=== PATIENT | male | born 1945 | race Caucasian/White ===

== ENCOUNTER → 2018-04-03 | Outpatient (CLI) | payer OTHER ==
[~2018-04-03] MED LIST: AMBI10TA PO; ASPI81TA23 PO; HYDR-3516 PO; LAMO300T PO; LATA0.002 RIGHT EYE; PRAM0.25 PO; QUET-73 PO; SERT-129 PO; TRAZ1TAB14 PO
--- NOTE | 2018-04-03 11:48 | RADRPT ---
EXAM DATE: 04/03/2018 11:45 AM EDT AGE/SEX: 72 years / Male INDICATIONS: Evaluate for pneumonia, pneumothorax and communicable diseases. Pre-op colon surgery CLINICAL DATA: This is the patient's initial encounter. Patient reports that signs and symptoms have been present for 1 day and indicates a pain score of 0/10. MEDICAL/SURGICAL HISTORY: None. None. COMPARISON: No prior [facility] exams available for comparison. FINDINGS: PA and lateral views of the chest demonstrate the lungs to be symmetrically aerated withou t evidence of mass, infiltrate or effusion. The cardiomediastinal contours are unremarkable. Osseous structures are intact. CONCLUSION: No evidence of acute cardiopulmonary process. Electronically signed by: Jose Spear MD 04/03/2018 11:47 AM EDT
[2018-04-03 11:54] LABS: AUTOMATED NEUTROPHIL # 3.4 TH/MM3 (1.8-7.7); BASOPHIL % 0.5 % (0.0-2.0); EOSINOPHIL # 0.2 TH/MM3 (0-0.4); EOSINOPHIL % 2.9 % (0.0-4.0); HEMATOCRIT 45.6 % (39.0-51.0); HEMOGLOBIN 15.7 GM/DL (13.0-17.0); LYMPH % 22.4 % (9.0-44.0); LYMPHOCYTE # 1.2 TH/MM3 (1.0-4.8); MEAN CELL VOLUME 91.7 FL (80.0-100.0); MEAN CORPUSCULAR HEMOGLOBIN 31.5 PG (27.0-34.0); MEAN CORPUSCULAR HGB CONC 34.3 % (32.0-36.0); MEAN PLATELET VOLUME 9.2 FL (7.0-11.0); MONO % 8.5 % (0.0-8.0); MONOCYTE # 0.4 TH/MM3 (0-0.9); NEUT % 65.7 % (16.0-70.0); PLATELET COUNT 171 TH/MM3 (150-450); RED BLOOD COUNT 4.97 MIL/MM3 (4.50-5.90); RED CELL DISTRIBUTION WIDTH 13.6 % (11.6-17.2); WHITE BLOOD COUNT 5.2 TH/MM3 (4.0-11.0)
[2018-04-03 12:01] LABS: PROTHROMBIN TIME - PATIENT 9.7 SEC (9.8-11.6)
[2018-04-03 12:22] LABS: ALBUMIN 3.8 GM/DL (3.4-5.0); AST (GOT) 17 U/L (15-37); BICARBONATE 30.5 MEQ/L (21.0-32.0); BLOOD UREA NITROGEN 20 MG/DL (7-18); CALCIUM 9.1 MG/DL (8.5-10.1); CHLORIDE 105 MEQ/L (98-107); CREATININE 1.34 MG/DL (0.60-1.30); GLOMERULAR FILTRATION RATE 53 ML/MIN (>89); GLUCOSE,FASTING 90 MG/DL (74-99); SODIUM (NA) 142 MEQ/L (136-145)
[2018-04-03 12:30] LABS: ALKALINE PHOSPHATASE 124 U/L (45-117); ALT (GPT) 26 U/L (12-78); TOTAL BILIRUBIN ADULT 0.4 MG/DL (0.2-1.0); TOTAL PROTEIN 6.9 GM/DL (6.4-8.2)
[2018-04-03 15:07] LABS: BILIRUBIN, URINE NEG (NEG); BLOOD, URINE NEG (NEG); GLUCOSE,URINE NEG (NEG); KETONE, URINE NEG (NEG); MUCUS URINE FEW /lpf (OCC); NITRITE,URINE NEG (NEG); SQUAMOUS EPITHELIAL CELL URINE <1 /hpf (0-5); URINE COLOR YELLOW (YELLW/STRAW); URINE LEUKOCYTE ESTERASE NEG (NEG)
--- NOTE | 2018-04-03 16:04 | EKG ---
Date Performed: 04/03/2018 Time Performed: 10:36:57 PTAGE: 72 years EKG: Sinus rhythm MODERATE INTRAVENTRICULAR CONDUCTION DELAY BORDERLINE ECG NO PREVIOUS TRACING DOCTOR: Telma Villavicencio Interpretating Date/Time 04/03/2018 16:02:08
== END ==
LOC: CPRE 10:16
PROVIDERS: ATTEND Colon & Rectal Surgery
DX: Z01.812 Encounter for preprocedural laboratory examination (principal); Z01.810 Encounter for preprocedural cardiovascular examination; Z01.811 Encounter for preprocedural respiratory examination; D12.2 Benign neoplasm of ascending colon; R94.31 Abnormal electrocardiogram [ECG] [EKG]; Z79.01 Long term (current) use of anticoagulants
CPT/HCPCS: 36415; 71046; 80053; 81001; 82378; 85025; 85610; 85730; 86850; 86900; 86901; 93005

== ENCOUNTER 2018-04-05 12:29 | Inpatient (IN) | payer OTHER, MEDICARE ==
[~2018-04-05] VITALS: Ht 182.9 cm; Wt 100.0 kg
[~2018-04-05 12:29] MED LIST changes: -AMBI10TA PO; +DEXAMETHASONE SOD PHOS 4 MG/ML VIAL IV ONE; -HYDR-3516 PO; +LIDOCAINE HCL 1% PF 5 ML SYRINGE OTHER ONE; +NORMOSOL R INJ 1,000 ML IV ONE; +ONDANSETRON HCL 4 MG/2 ML VIAL IV PUSH ONE; +PHENYLEPH/NS 1000 MCG/10 ML SYR IV ONE; +PROPOFOL 200 MG/20 ML AMP IV ONE; +ROCURONIUM INJ 50 MG/5 ML SYRINGE IV PUSH ONE
[2018-04-05] MEDS ORDERED: AMBI10TA PO (14:09)
[2018-04-05] MEDS ORDERED: CHLORHEXIDINE GLUCONATE 2 % 1 PACK (2 CLOTHS) TOPICAL PRN (14:15)
[2018-04-05] MEDS ORDERED: ALVIMOPAN 12 MG CAPSULE - On Call PO SCH (14:15)
[2018-04-05] MEDS ORDERED: SODIUM CHLORID 0.9% 500 ML IV PRN (14:15)
[2018-04-05] MEDS ORDERED: ceFAZolin 1,000 MG/NS 100 ML IV SCH ×2 (14:15)
[2018-04-05] MEDS ORDERED: POVIDONE IODINE 5% (ANTISEPSIS KIT) 4 APPLICATIONS EACH NARE PRN (14:15)
[2018-04-05] MEDS ORDERED: LACTATED RINGER'S 1000 ML IV PRN (14:15)
[2018-04-05] MEDS ORDERED: METOPROLOL TARTRATE 25 MG TAB PO PRN (14:15)
[2018-04-05] MEDS ORDERED: DEXT 5%-NACL 0.9% 1000 ML INJ 1,000 ML IV SCH (14:30)
[2018-04-05] MEDS ORDERED: METRONIDAZOLE 500 MG/100 ML ISONTONIC SOLN IV SCH (14:30)
[2018-04-05] MEDS ORDERED: SUGAMMADEX SODIUM 200 MG/2 ML VIAL IV PUSH ONE ×2 (15:54→17:08)
[2018-04-05] MEDS ORDERED: ACETAMINOPHEN 1000 MG/100 ML 100 ML IV ONE (15:54)
[2018-04-05] MEDS ORDERED: ENALAPRILAT 1.25 MG/ML VIAL IV PUSH PRN (17:15)
[2018-04-05] MEDS ORDERED: BENZOCAINE 6 MG/MENTHOL 10 MG LOZENGE BUCCAL PRN (17:15)
[2018-04-05] MEDS ORDERED: POTASSIUM CHLOR 40 MEQ PREMIX 100 ML IV PRN (17:15)
[2018-04-05] MEDS ORDERED: SODIUM CHLORIDE 0.9% FLUSH 10 ML FLUSH IV FLUSH PRN (17:15)
[2018-04-05] MEDS ORDERED: ZOLPIDEM TARTRATE 5 MG TAB PO PRN (17:15)
[2018-04-05] MEDS ORDERED: NALOXONE HCL 0.4 MG/ML AMP IV PUSH PRN (17:15)
[2018-04-05] MEDS ORDERED: KETOROLAC TROMETHAMINE 30 MG/ML (IVP) VIAL IVP PRN (17:15)
[2018-04-05] MEDS ORDERED: ONDANSETRON ODT 4 MG TAB PO PRN (17:15)
[2018-04-05] MEDS ORDERED: Post-op Orders (for Pharmacy) XX ONE (17:15)
[2018-04-05] MEDS ORDERED: ACETAMINOPHEN/HYDROcodone 325 MG/5 MG TAB PO PRN (17:15)
[2018-04-05] MEDS ORDERED: POTASSIUM CHLOR 20 MEQ PREMIX 100 ML IV PRN (17:15)
[2018-04-05] MEDS ORDERED: MEPERIDINE HCL 50 MG/ML VIAL ONE (17:19)
[2018-04-05] MEDS ORDERED: ONDANSETRON HCL 4 MG/2 ML VIAL ONE (17:21)
[2018-04-05] MEDS ORDERED: *PROMETHAZINE 25 MG/ML VIAL PERIprocedural use ONLY ONE (17:21)
[2018-04-05] MEDS ORDERED: *morphine SULFATE 10 MG/ML PERIprocedure ONLY ONE ×2 (17:23→19:25)
[2018-04-05] MEDS ORDERED: HYDROmorphone HCL PF 2 MG/ML VIAL ONE (17:27)
[2018-04-05] MEDS ORDERED: MORPHINE SULFATE 4 MG/ML INJ ONE (17:28)
[2018-04-05] MEDS ORDERED: MIDAZOLAM HCL 2 MG/2 ML VIAL ONE (17:28)
[2018-04-05] MEDS ORDERED: *diphenhydrAMINE HCL 50 MG/ML VIAL PERIprocedural Use ONLY ONE (17:51)
[2018-04-05 17:58] LABS: AUTOMATED NEUTROPHIL # 10.6 TH/MM3 (1.8-7.7); BASOPHIL % 0.2 % (0.0-2.0); EOSINOPHIL # 0.1 TH/MM3 (0-0.4); EOSINOPHIL % 0.6 % (0.0-4.0); HEMATOCRIT 43.5 % (39.0-51.0); HEMOGLOBIN 14.5 GM/DL (13.0-17.0); LYMPHOCYTE # 1.3 TH/MM3 (1.0-4.8); MEAN CELL VOLUME 93.2 FL (80.0-100.0); MEAN CORPUSCULAR HEMOGLOBIN 31.2 PG (27.0-34.0); MEAN CORPUSCULAR HGB CONC 33.4 % (32.0-36.0); MEAN PLATELET VOLUME 8.6 FL (7.0-11.0); MONO % 4.3 % (0.0-8.0); MONOCYTE # 0.5 TH/MM3 (0-0.9); NEUT % 84.9 % (16.0-70.0); PLATELET COUNT 144 TH/MM3 (150-450); RED BLOOD COUNT 4.66 MIL/MM3 (4.50-5.90); RED CELL DISTRIBUTION WIDTH 13.4 % (11.6-17.2); WHITE BLOOD COUNT 12.5 TH/MM3 (4.0-11.0)
[2018-04-05] MEDS: METOCLOPRAMIDE HCL 10 MG/2 ML VIAL IVS SCH ×2 (18:00→23:08)
--- NOTE | 2018-04-05 18:02 | MP ---
cc: Chris Bay MD,Francois Selby,Robb PUENTE DATE OF OPERATION: 04/05/2018 PREOPERATIVE DIAGNOSIS: Colon polyp cecum. POSTOPERATIVE DIAGNOSIS: Colon polyp cecum. PROCEDURE PERFORMED: Ascending colectomy. ANESTHESIA: General endotracheal. SURGEON: Chris Bay MD PROMOTIONS TEAM LEADER: Ruddy Melendez MD ESTIMATED BLOOD LOSS: 25 mL. OPERATING TIME: 1 hour. OPERATIVE FINDINGS: This patient was referred to ut by Dr. Peguero and Dr. Robb Selby from [place]. The patient had colon cancer screening with a colonoscopy and was found to have a 3-5 cm polyp just at the cecum or the ascending colon cecal junction. It was tattooed and patient was referred for resection. At surgery, exploration of the abdominal cavity revealed that the colon and small bowel was all palpably normal as was the liver and the gallbladder. The tattoo was seen in the cecal ascending colon region and a full ascending colectomy was done with an ileotransverse anastomosis. Specimen was opened at the end of the case showing approximately a 2.5 to 3 cm flat carpet-like villous-appearing polyp at the colonic cecal junction. It appeared benign. OPERATIVE TECHNIQUE: The patient was placed on the table in the supine position. After adequate general endotracheal anesthesia, the abdomen was prepped and draped in usual manner. A right-sided transverse supraumbilical skin incision was made and carried down through subcutaneous tissue and the rectus muscles and the peritoneal cavity was entered with the above-mentioned findings. Attention was turned to the cecum and the terminal ileum is mobilized from its attachments with electrocautery. The ascending colon was likewise mobilized up around the hepatic flexure and then the lesser sac was entered posterior to the stomach, anterior to the transverse colon mesocolon. A point to the right portion of the transverse colon was chosen for division and the marginal vessel was clamped, cut, and ligated and the transverse colon was divided with an Ethicon FITO 55 stapling device. Next, our attention was turned to the terminal ileum and the cecal region, and the terminal ileum was divided between Mary Anne clamps and then another piece of ileum was taken out as there was too much of an avascular hook present. Again divided between Mary Anne clamps and then the main ileocolic vessels were taken at their origin after doubly clamping, cutting and doubly ligating the ileocolic vessels. The right colic and right branches of the middle colic vessels were clamped, cut, and ligated with 0 Vicryl ligature and the specimen was removed from the table, opened with the above-mentioned findings. Next, the ileocolic anastomosis was done along the antimesenteric borders of the bowel using an Ethicon 55 FITO type stapling device to create the anastomosis along the antimesenteric borders of the bowel. Next, the colotomy was closed with a TX 60 blue staple height stapler and the opening in the mesentery was approximated with a running 3-0 Vicryl suture in a simple running manner. There was no tension on the staple line and the blood supply was excellent. Next, the abdominal cavity was inspected for hemostasis and hemostasis was obtained with electrocautery and ligature. The area was irrigated thoroughly with saline solution and aspirated dry. The bowels were replaced in the abdominal cavity in an production line technician manner and then the abdominal cavity was closed in layers using a double-stranded #1 PDS for the posterior rectus sheath and the muscle layer was irrigated with a liter of saline solution and then the anterior rectus sheath and external and internal obliques were closed with running double stranded #1 PDS as well. Subcutaneous tissue was irrigated thoroughly with saline solution and the skin was closed with running 3-0 Vicryl subcuticular sutures and a dressing was applied. Sponge, needle and instrument counts were reported as correct. Estimated blood loss was 25 mL. Operating time was 1 hour. The patient tolerated the procedure well and left the operating room in good condition. MD AMBER Bustos/SALBADOR , 05:31 PM , 06:01 PM MIKAYLA
[2018-04-05] MEDS: D5-LR + KCL 20 MEQ INJ 1,000 ML IV SCH ×2 (18:18→21:40)
[2018-04-05] MEDS: MORPHINE SULFATE 30 MG/30 ML PCA IV SCH (18:19)
[2018-04-05 18:34] LABS: BICARBONATE 24.4 MEQ/L (21.0-32.0); CALCIUM 8.3 MG/DL (8.5-10.1); CREATININE 1.21 MG/DL (0.60-1.30)
[2018-04-05] MEDS ORDERED: DO NOT ADM ANY ANTICOAGULANT DRUGS PRN (19:00)
[2018-04-05] MEDS: SODIUM CHLORIDE 0.9% FLUSH 10 ML FLUSH IV FLUSH SCH (20:23)
[2018-04-05] MEDS: FUROSEMIDE 20 MG/2 ML VIAL IV PUSH SCH (20:23)
[2018-04-05] MEDS: traZODone HCL 100 MG TAB PO SCH (21:00)
[2018-04-05] MEDS: LATANOPROST 0.005% OPHT SOLN 2.5 ML BTL RIGHT EYE SCH (21:00)
[2018-04-05] MEDS: PCA - TOTAL MG MORPHINE DELIVERED PER SHIFT SCH (21:21)
[2018-04-05] MEDS: metroNIDAZOLE 500 MG INJ 100 ML IV SCH (23:08)
[2018-04-06] MEDS: ceFAZolin 2 GM PREMIX 50 ML IV SCH ×3 (00:04→16:25)
[2018-04-06] MEDS: PCA - TOTAL MG MORPHINE DELIVERED PER SHIFT SCH ×3 (05:02→22:00)
[2018-04-06] MEDS: METOCLOPRAMIDE HCL 10 MG/2 ML VIAL IVS SCH ×4 (05:04→23:19)
[2018-04-06 07:18] LABS: AUTOMATED NEUTROPHIL # 7.4 TH/MM3 (1.8-7.7); BASOPHIL % 0.2 % (0.0-2.0); EOSINOPHIL # 0.1 TH/MM3 (0-0.4); EOSINOPHIL % 1.4 % (0.0-4.0); HEMATOCRIT 40.6 % (39.0-51.0); HEMOGLOBIN 13.8 GM/DL (13.0-17.0); LYMPH % 7.2 % (9.0-44.0); LYMPHOCYTE # 0.7 TH/MM3 (1.0-4.8); MEAN CELL VOLUME 91.9 FL (80.0-100.0); MEAN CORPUSCULAR HEMOGLOBIN 31.2 PG (27.0-34.0); MEAN PLATELET VOLUME 8.3 FL (7.0-11.0); MONO % 9.4 % (0.0-8.0); MONOCYTE # 0.9 TH/MM3 (0-0.9); NEUT % 81.8 % (16.0-70.0); PLATELET COUNT 156 TH/MM3 (150-450); RED BLOOD COUNT 4.42 MIL/MM3 (4.50-5.90); RED CELL DISTRIBUTION WIDTH 13.4 % (11.6-17.2); WHITE BLOOD COUNT 9.1 TH/MM3 (4.0-11.0)
[2018-04-06 07:47] LABS: BICARBONATE 31.7 MEQ/L (21.0-32.0); CALCIUM 8.1 MG/DL (8.5-10.1); CREATININE 1.23 MG/DL (0.60-1.30)
[2018-04-06] MEDS: metroNIDAZOLE 500 MG INJ 100 ML IV SCH ×2 (08:00→16:26)
[2018-04-06] MEDS: MORPHINE SULFATE 30 MG/30 ML PCA IV SCH ×2 (08:06→23:19)
[2018-04-06] MEDS: FUROSEMIDE 20 MG/2 ML VIAL IV PUSH SCH ×2 (08:29→22:05)
[2018-04-06] MEDS: PANTOPRAZOLE SODIUM 40 MG VIAL IVP SCH (08:29)
[2018-04-06] MEDS: SODIUM CHLORIDE 0.9% FLUSH 10 ML FLUSH IV FLUSH SCH ×2 (08:29→21:00)
[2018-04-06] MEDS: ASPIRIN EC 81 MG TABEC PO SCH (08:30)
[2018-04-06] MEDS: QUEtiapine FUMARATE 200 MG TAB PO SCH ×2 (08:30→22:01)
[2018-04-06] MEDS: PRAMIPEXOLE DIHYDROCHLORIDE 0.25 MG TAB PO SCH (08:30)
[2018-04-06] MEDS: ALVIMOPAN 12 MG CAPSULE PO SCH ×2 (08:30→22:01)
[2018-04-06] MEDS: SERTRALINE HCL 100 MG TAB PO SCH (08:30)
[2018-04-06] MEDS ORDERED: ALVIMOPAN 12 MG CAPSULE - Post-op dosing PO SCH (09:00)
[2018-04-06] MEDS: ACETAMINOPHEN/HYDROcodone 325 MG/5 MG TAB PO PRN ×2 (09:10→14:08)
[2018-04-06 15:30] VITALS: BP 119/60; PULSE 91; RESP 18; TEMP 97.7; O2SAT 90
[2018-04-06] MEDS: D5-LR + KCL 20 MEQ INJ 1,000 ML IV SCH (17:00)
--- NOTE | 2018-04-06 17:16 | HHI.PR ---
Subjective Remarks No c/o pain. Small BMs. Objective Vital Signs Date Time Temp Pulse Resp B/P (MAP) Pulse Ox O2 Delivery O2 Flow Rate FiO2 04/06/18 15:30 97.7 91 18 119/60 (79) 90 04/06/18 14:07 16 04/06/18 14:00 16 04/06/18 11:00 94 15 158/68 (98) 94 Room Air 04/06/18 08:06 12 04/06/18 07:00 98 15 131/70 (90) 97 Nasal Cannula 3 04/06/18 06:00 99 12 131/72 (91) 97 Nasal Cannula 3 04/06/18 05:02 12 04/06/18 05:00 97 12 133/70 (91) 96 Nasal Cannula 3 04/06/18 04:00 98.6 97 15 128/74 (92) 98 Nasal Cannula 3 04/06/18 03:00 98 12 128/74 (92) 95 Nasal Cannula 3 04/06/18 02:00 99 12 117/70 (86) 95 Nasal Cannula 3 04/06/18 01:00 100 10 127/64 (85) 96 Nasal Cannula 3 04/06/18 00:00 99 10 146/78 (100) 95 Nasal Cannula 3 04/05/18 23:00 101 10 156/75 (102) 97 Nasal Cannula 4 04/05/18 22:00 105 10 142/81 (101) 96 Nasal Cannula 4 04/05/18 21:21 8 04/05/18 21:05 14 04/05/18 21:00 108 10 142/82 (102) 96 Nasal Cannula 4 04/05/18 19:55 104 18 141/74 (96) 96 Nasal Cannula 4 04/05/18 18:19 16 04/05/18 18:15 102 18 155/90 (111) 95 Nasal Cannula 4 04/05/18 18:00 97 18 142/88 (106) 95 Nasal Cannula 4 04/05/18 17:45 100 18 148/89 (108) 95 Nasal Cannula 4 04/05/18 17:30 99 18 136/81 (99) 95 Nasal Cannula 4 04/05/18 17:18 98.4 105 18 119/74 (89) 94 Nasal Cannula 4 I/O 04/05/18 04/05/18 04/05/18 04/06/1818 5/25/18 07:00 15:00 23:00 07:00 15:00 23:00 Intake Total 3789 ml 1414 ml 1850 ml Output Total 960 ml 750 ml 1025 ml Balance 2829 ml 664 ml 825 ml Intake Oral 850 ml IV Total 1000 ml 150 ml 1000 ml Other 2789 ml 1264 ml Output Urine Total 950 ml 750 ml 1025 ml Estimated Blood Loss 10 ml # Bowel Movements 2 Result Diagram: 04/06/18 0710 04/06/18 07 Objective Remarks VS-S Abd: soft,dressing dry I&Os-OK Labs-OK Assessment and Plan Assessment and Plan Stable POD#1 Plan: D/C BOBCAT OPERATOR,cheng and dressing in AM. Decrease IVs. Increase diet Chris Bay MD April 06, 2018 17:16
[2018-04-06 19:20] VITALS: BP 150/68; PULSE 96; RESP 19; TEMP 98.9; O2SAT 92
[2018-04-06] MEDS: traZODone HCL 100 MG TAB PO SCH (22:01)
[2018-04-06] MEDS: LATANOPROST 0.005% OPHT SOLN 2.5 ML BTL RIGHT EYE SCH (22:01)
[2018-04-07] VITALS: BP 128/61; PULSE 109; RESP 18; TEMP 99; O2SAT 93
[2018-04-07] MEDS: D5-LR + KCL 20 MEQ INJ 1,000 ML IV SCH ×3 (03:26→20:22)
[2018-04-07 04:00] VITALS: BP 144/79; PULSE 110; RESP 18; TEMP 98.7; O2SAT 94
[2018-04-07] MEDS: PCA - TOTAL MG MORPHINE DELIVERED PER SHIFT SCH (06:00)
[2018-04-07] MEDS: METOCLOPRAMIDE HCL 10 MG/2 ML VIAL IVS SCH ×4 (06:16→23:32)
[2018-04-07 07:26] LABS: AUTOMATED NEUTROPHIL # 5.6 TH/MM3 (1.8-7.7); BASOPHIL % 0.2 % (0.0-2.0); EOSINOPHIL # 0.3 TH/MM3 (0-0.4); EOSINOPHIL % 4.3 % (0.0-4.0); HEMATOCRIT 38.2 % (39.0-51.0); HEMOGLOBIN 13.1 GM/DL (13.0-17.0); LYMPH % 12.2 % (9.0-44.0); LYMPHOCYTE # 0.9 TH/MM3 (1.0-4.8); MEAN CELL VOLUME 92.3 FL (80.0-100.0); MEAN CORPUSCULAR HEMOGLOBIN 31.6 PG (27.0-34.0); MEAN CORPUSCULAR HGB CONC 34.2 % (32.0-36.0); MEAN PLATELET VOLUME 8.8 FL (7.0-11.0); MONO % 10.8 % (0.0-8.0); MONOCYTE # 0.8 TH/MM3 (0-0.9); NEUT % 72.5 % (16.0-70.0); PLATELET COUNT 127 TH/MM3 (150-450); RED BLOOD COUNT 4.14 MIL/MM3 (4.50-5.90); RED CELL DISTRIBUTION WIDTH 13.3 % (11.6-17.2); WHITE BLOOD COUNT 7.7 TH/MM3 (4.0-11.0)
[2018-04-07 07:50] LABS: BICARBONATE 30.9 MEQ/L (21.0-32.0); CALCIUM 7.9 MG/DL (8.5-10.1); CREATININE 1.31 MG/DL (0.60-1.30)
[2018-04-07 08:00] VITALS: BP 152/54; PULSE 103; RESP 16; TEMP 99.6; O2SAT 96
[2018-04-07] MEDS: LAMOTRIGINE 300 MG PO SCH (09:00)
[2018-04-07] MEDS: SODIUM CHLORIDE 0.9% FLUSH 10 ML FLUSH IV FLUSH SCH ×2 (09:00→20:33)
[2018-04-07] MEDS: PRAMIPEXOLE DIHYDROCHLORIDE 0.25 MG TAB PO SCH (09:02)
[2018-04-07] MEDS: ASPIRIN EC 81 MG TABEC PO SCH (09:03)
[2018-04-07] MEDS: PANTOPRAZOLE SODIUM 40 MG VIAL IVP SCH (09:03)
[2018-04-07] MEDS: QUEtiapine FUMARATE 200 MG TAB PO SCH ×2 (09:03→20:32)
[2018-04-07] MEDS: FUROSEMIDE 20 MG/2 ML VIAL IV PUSH SCH ×2 (09:03→20:32)
[2018-04-07] MEDS: ALVIMOPAN 12 MG CAPSULE PO SCH ×2 (09:03→20:32)
[2018-04-07] MEDS: SERTRALINE HCL 100 MG TAB PO SCH (09:03)
[2018-04-07 12:00] VITALS: BP 133/72; PULSE 106; RESP 17; TEMP 98.4; O2SAT 92
[2018-04-07] MEDS: ACETAMINOPHEN/HYDROcodone 325 MG/5 MG TAB PO PRN ×3 (15:09→23:31)
[2018-04-07 16:00] VITALS: BP 138/79; PULSE 110; RESP 16; TEMP 97.1; O2SAT 92
[2018-04-07 20:00] VITALS: BP 141/77; PULSE 87; RESP 17; TEMP 97.7; O2SAT 96
[2018-04-07] MEDS: traZODone HCL 100 MG TAB PO SCH (20:32)
[2018-04-07] MEDS: LATANOPROST 0.005% OPHT SOLN 2.5 ML BTL RIGHT EYE SCH (20:33)
[2018-04-08] VITALS: BP 139/55; PULSE 99; RESP 17; TEMP 97.9; O2SAT 94
[2018-04-08] MEDS: METOCLOPRAMIDE HCL 10 MG/2 ML VIAL IVS SCH ×2 (06:00→11:56)
[2018-04-08] MEDS: ACETAMINOPHEN/HYDROcodone 325 MG/5 MG TAB PO PRN (06:00)
[2018-04-08 06:29] LABS: BASOPHIL % 0.2 % (0.0-2.0); EOSINOPHIL # 0.4 TH/MM3 (0-0.4); EOSINOPHIL % 5.9 % (0.0-4.0); HEMATOCRIT 39.2 % (39.0-51.0); HEMOGLOBIN 13.9 GM/DL (13.0-17.0); LYMPH % 14.8 % (9.0-44.0); LYMPHOCYTE # 1.1 TH/MM3 (1.0-4.8); MEAN CELL VOLUME 90.7 FL (80.0-100.0); MEAN CORPUSCULAR HEMOGLOBIN 32.1 PG (27.0-34.0); MEAN CORPUSCULAR HGB CONC 35.4 % (32.0-36.0); MEAN PLATELET VOLUME 8.9 FL (7.0-11.0); MONOCYTE # 0.7 TH/MM3 (0-0.9); NEUT % 69.1 % (16.0-70.0); PLATELET COUNT 131 TH/MM3 (150-450); RED BLOOD COUNT 4.32 MIL/MM3 (4.50-5.90); RED CELL DISTRIBUTION WIDTH 13.5 % (11.6-17.2); WHITE BLOOD COUNT 7.2 TH/MM3 (4.0-11.0)
[2018-04-08 06:50] LABS: BICARBONATE 32.4 MEQ/L (21.0-32.0); CALCIUM 8.6 MG/DL (8.5-10.1); CREATININE 1.35 MG/DL (0.60-1.30)
[2018-04-08 08:00] VITALS: BP 115/71; PULSE 110; RESP 17; TEMP 98.5; O2SAT 94
[2018-04-08] MEDS: D5-LR + KCL 20 MEQ INJ 1,000 ML IV SCH (08:25)
[2018-04-08] MEDS: ASPIRIN EC 81 MG TABEC PO SCH (08:48)
[2018-04-08] MEDS: QUEtiapine FUMARATE 200 MG TAB PO SCH (08:48)
[2018-04-08] MEDS: SERTRALINE HCL 100 MG TAB PO SCH (08:48)
[2018-04-08] MEDS: PRAMIPEXOLE DIHYDROCHLORIDE 0.25 MG TAB PO SCH (08:48)
[2018-04-08] MEDS: ALVIMOPAN 12 MG CAPSULE PO SCH (08:48)
[2018-04-08] MEDS: LAMOTRIGINE 300 MG PO SCH (08:49)
[2018-04-08] MEDS: PANTOPRAZOLE SODIUM 40 MG VIAL IVP SCH (08:49)
[2018-04-08] MEDS: SODIUM CHLORIDE 0.9% FLUSH 10 ML FLUSH IV FLUSH SCH (08:49)
[2018-04-08] MEDS: FUROSEMIDE 20 MG/2 ML VIAL IV PUSH SCH (08:49)
[2018-04-08] MEDS ORDERED: HYDR-3516 PO (10:34)
== END 2018-04-08 12:29 | disposition home or self-care (01) | DRG 331 ==
LOC: HSDI 12:29 → EDUNIT# 15:30 → HPAC 20:56 → HCPC 04-06 14:20 → N07B 04-06 22:55
PROVIDERS: ADMIT Colon & Rectal Surgery; ATTEND Colon & Rectal Surgery
PROC: 0DTK0ZZ Resection of Ascending Colon, Open Approach (ICD-10-PCS; principal; 2018-04-05 15:39)
DX: K63.5 Polyp of colon (principal)
CPT/HCPCS: 36415; 71046; 80048; 80053; 81001; 82378; 85025; 85610; 85730; 86850; 86900; 86901; 88307; 93005; C9113; J0131; J0690; J1100; J1170; J1200; J1885; J1940; J2175; J2250; J2270; J2370; J2405; J2550; J2765; J3010; J3480; J7120